=== PATIENT | male | born 1985 | race Caucasian/White ===

== ENCOUNTER 2017-07-19 12:20 | Emergency (ER) | payer BC ==
[2017-07-19 12:27] VITALS: BP 120/72
--- NOTE | 2017-07-19 12:38 | UC ---
Eye Complaint HPI - HPI Summary HPI Summary: right eye redness x 1 day no discharge, no change in vision , no photophobia, no fb sensation - History of Current Complaint Chief Complaint: UCEye Stated Complaint: RIGHT EYE COMPLAINT Time Seen by Provider: 07/19/17 12:23 Hx Obtained From: Patient Onset/Duration: Gradual Onset, Lasting Days - 1, Still Present Timing: Constant Severity Initially: Moderate Severity Currently: Moderate Location of Injury: Conjunctiva - right Alleviating Factor(s): Nothing Associated Signs And Symptoms: Positive: Negative. Negative: Photophobia, Drainage (Clear), Drainage (Purulent), Vision Impairment Bilateral, Vision Impairment Right, Vision Impairment Left, Fever, Swelling - Allergies/Home Medications Allergies/Adverse Reactions: Allergies Allergy/AdvReac Type Severity Reaction Status Date / Time No Known Allergies Allergy Verified 07/19/17 12:27 PMH/Surg Hx/FS Hx/Imm Hx Previously Healthy: Yes - Surgical History Surgical History: None - Family History Known Family History: Negative: Diabetes - Social History Alcohol Use: Occasionally Substance Use Type: None Smoking Status (MU): Never Smoked Tobacco Review of Systems Constitutional: Negative Skin: Negative Eyes: Eye Redness ENT: Negative Respiratory: Negative Cardiovascular: Negative Is Patient Immunocompromised?: No All Other Systems Reviewed And Are Negative: Yes Physical Exam Triage Information Reviewed: Yes Appearance: Well-Appearing, No Pain Distress, Well-Nourished Vital Signs: Initial Vital Signs Temp 98.1 F 07/19/17 12:24 Pulse 62 07/19/17 12:24 Resp 16 07/19/17 12:24 BP 120/72 07/19/17 12:24 Pulse Ox 99 07/19/17 12:24 Vital Signs Reviewed: Yes Eyes: Positive: Conjunctiva Inflamed - right ENT: Positive: Normal ENT inspection, Hearing grossly normal, Pharynx normal Neck exam: Normal Neck: Positive: Supple, Nontender, No Lymphadenopathy Respiratory: Positive: Chest non-tender, Lungs clear, Normal breath sounds Cardiovascular: Positive: RRR, No Murmur, Pulses Normal Skin Exam: Normal Eye Complaint Course/Dx - Differential Dx/Diagnosis Provider Diagnoses: conjunctivitis Discharge - Discharge Plan Condition: Stable Disposition: HOME Prescriptions: Tobramycin 0.3% OPHTH.HARRISON* 1 drop RIGHT EYE Q4H #1 btl Patient Education Materials: Conjunctivitis (ED)
== END 2017-07-19 12:38 | disposition home or self-care (01) ==
LOC: UCCORT 12:20
DX: H10.31 Unspecified acute conjunctivitis, right eye (principal)
CPT/HCPCS: 99212; G0463

== ENCOUNTER 2018-10-04 16:56 | Emergency (ER) | payer BC ==
[2018-10-04 17:30] VITALS: BP 123/81
--- NOTE | 2018-10-04 19:10 | UC ---
Laceration HPI - HPI Summary HPI Summary: 32 y/o male presents to the urgent care c/o states stood up into a peice of steel about an hour ago sustaining a laceration to top of head. Bleeding controlled. Last tetanus approx 7 years ago. Denies headache, N/V, photophobia. - History Of Current Complaint Chief Complaint: UCLaceration Stated Complaint: HEAD LACERATION Time Seen by Provider: 10/04/18 19:07 Hx Obtained From: Patient Laceration Location: Head Mechanism Of Injury: Sharp Trauma Pain Intensity: 0 - Allergies/Home Medications Allergies/Adverse Reactions: Allergies Allergy/AdvReac Type Severity Reaction Status Date / Time No Known Allergies Allergy Verified 10/04/18 17:27 Home Medications: Home Medications NK [No Home Medications Reported] 10/04/18 [History Confirmed 10/04/18] PMH/Surg Hx/FS Hx/Imm Hx - Surgical History Surgical History: None - Family History Known Family History: Negative: Diabetes - Social History Alcohol Use: Weekly Substance Use Type: None Smoking Status (MU): Never Smoked Tobacco Physical Exam Triage Information Reviewed: Yes Vital Signs: Initial Vital Signs Temp 97.9 F 10/04/18 17:25 Pulse 77 10/04/18 17:25 Resp 16 10/04/18 17:25 BP 123/81 10/04/18 17:25 Pulse Ox 99 10/04/18 17:25 Laceration Repair - Laceration Repair 1 Description: Linear - superficial linear laceration in the left side of scalp Laceration Size After Repair: Length (cm) - 2.0cm Modified For Repair: No Cleansing Completed Via Routine Prep: Yes Irrigation With Pressure Irrigation Device: Yes Closure Material: Weston - 5 Closure Method: Single Layer Suture Of: Skin, SQ Laceration Course/Dx - Differential Dx - Laceration/Wound Differental Diagnoses: Abrasion, Laceration, Puncture Wound - Diagnosis Provider Diagnosis: Laceration of scalp Discharge - Sign-Out/Discharge Documenting (check all that apply): Patient Departure - D/C home All imaging exams completed and their final reports reviewed: No Studies - Discharge Plan Condition: Stable Disposition: HOME Patient Education Materials: Laceration (ED), Staple Care (ED) Referrals: [facility] [Outside] - 1 Week Additional Instructions: 1-Please apply topical antibiotic over the wound. Keep wound clean and dry 2- F/u staple removal in 7 days w/ your PCP or here at the urgent care. 3-Take Ibuprofen or Tylenol PO q6-8hrs prn for pain or swelling. 4- If you develop fever or redness around your finger despite the antibiotic please go to the ER immediately or return to the Urgent care. - Billing Disposition and Condition Condition: STABLE Disposition: Home
[2018-10-04] MEDS ORDERED: Lidocaine 1%* 5 ML VIAL INJ ONE (19:16)
[2018-10-04] MEDS: Tetan/Diph/Pertus SYR(Tdap)* 0.5 ML SYR(BOOSTRIX) use SYR IM ONE (19:21)
== END 2018-10-04 19:54 | disposition home or self-care (01) ==
LOC: UCCORT 16:56
DX: S01.01XA Laceration without foreign body of scalp, initial encounter (principal); W22.8XXA Striking against or struck by other objects, initial encounter; Y93.89 Activity, other specified; Y92.9 Unspecified place or not applicable
CPT/HCPCS: 12001; 90715; 99211; G0463

== ENCOUNTER 2018-10-12 10:01 | Emergency (ER) | payer BC ==
[2018-10-12 10:20] VITALS: BP 126/66
--- NOTE | 2018-10-12 10:23 | UC ---
UC General HPI - HPI Summary HPI Summary: JERARDO IN SCALP 7 DAYS AGO. HERE FOR REMOVAL. NO MCKEON, FEVER. NO COMPLAINTS. - History of Current Complaint Chief Complaint: UCGeneralIllness Stated Complaint: STAPLE REMOVAL-DONE HERE Time Seen by Provider: 10/12/18 10:18 Hx Obtained From: Patient Pain Intensity: 0 - Allergy/Home Medications Allergies/Adverse Reactions: Allergies Allergy/AdvReac Type Severity Reaction Status Date / Time No Known Allergies Allergy Verified 10/12/18 10:20 PMH/Surg Hx/FS Hx/Imm Hx Previously Healthy: Yes - Surgical History Surgical History: None - Family History Known Family History: Positive: None - Pt denies FMHX Negative: Diabetes - Social History Alcohol Use: Weekly Substance Use Type: None Smoking Status (MU): Never Smoked Tobacco - Immunization History Hx Tetanus, Diphtheria Vaccination: No - 7 years ago Review of Systems All Other Systems Reviewed And Are Negative: Yes Constitutional: Positive: Negative Skin: Positive: Negative Eyes: Positive: Negative ENT: Positive: Negative Respiratory: Positive: Negative Cardiovascular: Positive: Negative Gastrointestinal: Positive: Negative Genitourinary: Positive: Negative Motor: Positive: Negative Neurovascular: Positive: Negative Musculoskeletal: Positive: Negative Neurological: Positive: Negative Psychological: Positive: Negative Physical Exam Triage Information Reviewed: Yes Appearance: Well-Appearing Vital Signs: Initial Vital Signs Temp 97.7 F 10/12/18 10:18 Pulse 93 10/12/18 10:18 Resp 18 10/12/18 10:18 BP 126/66 10/12/18 10:18 Pulse Ox 100 10/12/18 10:18 Vital Signs Reviewed: Yes Eyes: Positive: Conjunctiva Clear ENT: Positive: Normal ENT inspection Neck: Positive: Supple Respiratory: Positive: No respiratory distress Cardiovascular: Positive: RRR Neurological: Positive: Alert Psychological: Positive: Age Appropriate Behavior Skin Exam: Normal, Other - 5 JERARDO SCALP. HEALED WITH NO SWELLING OR ERYTHEMA AND NON TENDER. Course/Dx - Course Course Of Treatment: PROCEDURE: JERARDO REMOVED. TOLERATED WELL. - Diagnoses Provider Diagnosis: Removal of staple Discharge - Sign-Out/Discharge Documenting (check all that apply): Patient Departure All imaging exams completed and their final reports reviewed: No Studies - Discharge Plan Condition: Stable Disposition: HOME Patient Education Materials: Stitches Removal (ED) Referrals: No Primary Care Phys,NOPCP [Primary Care Provider] - Additional Instructions: RETURN NEEDED - Billing Disposition and Condition Condition: STABLE Disposition: Home
== END 2018-10-12 10:27 | disposition home or self-care (01) ==
LOC: UCCORT 10:01
DX: S01.01XD Laceration without foreign body of scalp, subsequent encounter (principal); X58.XXXD Exposure to other specified factors, subsequent encounter